=== PATIENT | male | born 1990 | race Caucasian/White ===

== ENCOUNTER 2019-03-01 08:27 | Emergency (ER) | payer OTHER | END 2019-03-01 10:05 | disposition home or self-care (01) | LOC: FTE 08:27 | DX: H60.91 Unspecified otitis externa, right ear (principal); H66.91 Otitis media, unspecified, right ear; F17.210 Nicotine dependence, cigarettes, uncomplicated | CPT/HCPCS: 99283 ==

== ENCOUNTER 2019-06-25 22:24 | Emergency (ER) | payer OTHER | END 2019-06-25 22:43 | disposition home or self-care (01) | LOC: E/R 22:24 | DX: H66.002 Acute suppurative otitis media without spontaneous rupture of ear drum, left ear (principal); Z87.891 Personal history of nicotine dependence | CPT/HCPCS: 99283; Z7502 ==